=== PATIENT | female | born 1965 | race Asian ===

== ENCOUNTER → 2019-08-29 | Outpatient (CLI) | payer BC | END | disposition home or self-care (01) | LOC: LAB 10:00 → LAB SHORT 10:00 | DX: E78.5 Hyperlipidemia, unspecified (principal); E11.9 Type 2 diabetes mellitus without complications | CPT/HCPCS: 82043 ==

== ENCOUNTER 2020-11-18 17:41 | Emergency (ER) | payer BC ==
[~2020-11-18] VITALS: Ht 149.9 cm; Wt 74.8 kg
[2020-11-18 18:59] LABS: Source, Urine Clean Catch
[2020-11-18 19:08] LABS: Appearance, Urine Clear (Clear); Bilirubin, Urine Neg (Neg); Blood, Urine Neg (Neg); Color, Urine Yellow (P-Yellow); Glucose Qualitative, Urine Neg (Neg); Ketones, Urine Neg (Neg); Leukocyte Esterase, Urine Neg (Neg); Nitrite, Urine Neg (Neg); Protein, Urine Neg (Neg); Urobilinogen, Urine NORM (Normal)
[2020-11-18 20:16] LABS: BASOPHILS ABSOLUTE AUTO 0.09 K/mm3 (0.00-0.23); BASOPHILS PERCENT AUTO 1 % (0-2); EOSINOPHILS PERCENT AUTO 4 % (0-6); Hematocrit 44.2 % (33.0-51.0); Hemoglobin 14.4 g/dL (11.5-16.0); IMMATURE GRAN ABSOLUTE AUTO 0.02 K/mm3 (0.00-0.10); IMMATURE GRAN PERCENT AUTO 0 % (0-1); LYMPHOCYTES ABSOLUTE AUTO 3.27 K/mm3 (0.84-5.20); LYMPHOCYTES PERCENT AUTO 39 % (21-46); MONOCYTES ABSOLUTE AUTO 0.55 K/mm3 (0.16-1.47); MONOCYTES PERCENT AUTO 7 % (4-13); Mean Corpuscular HGB 29.7 pg (26.0-34.0); Mean Corpuscular HGB Conc 32.6 g/dL (31.5-36.5); Mean Corpuscular Volume 91 fL (80-100); Mean Platelet Volume 10.5 fL (9.1-12.4); NEUTROPHILS ABSOLUTE AUTO 4.07 K/mm3 (1.96-9.15); NEUTROPHILS PERCENT AUTO 49 % (41-73); Platelet Count 242 K/mm3 (150-400); RDW Coefficient Variation 12.5 % (11.7-14.2); RDW Standard Deviation 41.2 fL (35.1-46.3); Red Blood Cell Count 4.85 M/mm3 (3.80-5.20)
[2020-11-18 20:37] LABS: Alanine Aminotransfer (ALT/SGP 47 U/L (12-78); Albumin, Blood 4.4 g/dL (3.4-5.0); Alk Phos 56 U/L (50-136); Anion Gap 3 mmol/L (6-16); Aspartate Aminotrans (AST/SGOT 29 U/L (12-37); Bilirubin, Total 0.3 mg/dL (0.1-1.0); Blood Urea Nitrogen 17 mg/dL (8-24); CO2, Blood 27 mmol/L (21-32); Calcium, Blood 9.7 mg/dL (8.5-10.1); Chloride, Blood 108 mmol/L (98-108); Creatinine, Blood 0.63 mg/dL (0.40-1.00); Globulin, Blood 4.4 g/dL (2.2-4.0); Glomerular Filtration Rate >60 (60-); Glucose, Blood 101 mg/dL (70-99); Potassium, Blood 4.4 mmol/L (3.5-5.5); Sodium, Blood 138 mmol/L (136-145); Total Protein, Blood 8.8 g/dL (6.4-8.2)
[2020-11-18] MEDS ORDERED: CYCL10 PO (21:21)
[2020-11-18] MEDS ORDERED: LIDO700A20 TOP (21:21)
== END 2020-11-18 21:31 | disposition home or self-care (01) ==
LOC: ER 17:41
PROVIDERS: Physician Assistant
DX: R10.9 Unspecified abdominal pain (principal)
CPT/HCPCS: 36415; 74176; 80053; 81003; 81025; 83690; 85025; 99284-25; A9270

== ENCOUNTER → 2021-12-27 | Outpatient (CLI) | payer OTHER ==
[~2021-12-27] MED LIST: CYCL10 PO; LIDO700A20 TOP
== END | disposition home or self-care (01) ==
LOC: LAB SHORT 10:00
DX: E11.65 Type 2 diabetes mellitus with hyperglycemia (principal)
CPT/HCPCS: 82043

== ENCOUNTER 2022-06-06 09:56 | Day surgery (SDC) | payer OTHER ==
[2022-06-06] MEDS ORDERED: Lisinopril2.5 MG (10:24)
[2022-06-06] MEDS ORDERED: PRAV20 (10:24)
[2022-06-06] MEDS ORDERED: Amaryl1 MG (10:25)
== END 2022-06-06 11:54 | disposition home or self-care (01) ==
DX: Z12.11 Encounter for screening for malignant neoplasm of colon (principal); K63.5 Polyp of colon; D12.5 Benign neoplasm of sigmoid colon; K62.89 Other specified diseases of anus and rectum; E11.9 Type 2 diabetes mellitus without complications; I10 Essential (primary) hypertension; E78.5 Hyperlipidemia, unspecified; Z79.899 Other long term (current) drug therapy

== ENCOUNTER → 2023-02-05 | Outpatient (CLI) | payer OTHER ==
[~2023-02-05] MED LIST changes: +Amaryl1 MG; +Lisinopril2.5 MG; +PRAV20
[2023-02-05 18:57] LABS: Bun/Creatinine Ratio 27.3 (12.0-20.0); Calcium, Blood 9.3 mg/dL (8.5-10.1); Creatinine, Blood 0.48 mg/dL (0.40-1.00); Potassium, Blood 4.1 mmol/L (3.5-5.5)
[2023-02-05 18:58] LABS: Creatinine, Urine Random 71.9 mg/dL (27.00-270.00)
[2023-02-05 19:02] LABS: Microalb/Creat Ratio UR, Rand 9.11 mg/g (0.000-30.000); Microalbumin, Random Urine 6.55 mg/L (0.000-20.000)
== END | disposition home or self-care (01) ==
LOC: LAB SHORT 08:45 → LAB 08:45
PROVIDERS: Hospitalist
DX: E11.65 Type 2 diabetes mellitus with hyperglycemia (principal); I10 Essential (primary) hypertension
CPT/HCPCS: 80048; 82043; 82570